=== PATIENT | female | born 1985 | race Caucasian/White ===

== ENCOUNTER 2018-10-07 00:41 | Emergency (ER) | payer MEDICAID ==
[2018-10-07 01:31] LABS: BILIRUBIN,URINE NEGATIVE (NEGATIVE); GLUCOSE, URINE (UA) NEGATIVE (NEGATIVE); KETONES,URINE (UA) NEGATIVE (NEGATIVE); LEUKOCYTE ESTERASE, URINE NEGATIVE (NEGATIVE); NITRITE,URINE NEGATIVE (NEGATIVE); OCCULT BLOOD,URINE NEGATIVE (NEGATIVE); PROTEIN,URINE NEGATIVE (NEGATIVE); UROBILINOGEN,URINE 0.2 (NORMAL) E.U./dL (NORMAL)
--- NOTE | 2018-10-07 01:35 | ED Physician Documentation ---
PD HPI ABD PAIN - Stated complaint Stated Complaint: ABDOMINAL PAIN - Chief complaint Chief Complaint: Abd Pain - History obtained from History obtained from: Patient - History of Present Illness Timing - onset: Today Timing - details: Abrupt onset, Now resolved Pain level max: 2 Pain level now: 0 Quality: Aching Location: Epigastric Improved by: Other (Nothing) Worsened by: Other (Nothing) Associated symptoms: Nausea, Vomiting. No: Hematemesis, Diarrhea, Constipation, Melena, Hematochezia, Chest pain, Dizzy, Near syncope / syncope Similar symptoms before: Has not had sx before Recently seen: Not recently seen - Additional information Additional information: 33-year-old female with history of PTSD here with complaint of epigastric pain after taking 800 mg of ibuprofen at 7 PM and NyQuil at 9 PM to treat her toothache. Patient stated that she had one episode of nausea and vomiting. Patient claims she did not have any food when she took the ibuprofen. Denies any fever, dysuria, constipation or diarrhea.States drinks alcohol sometimes and drinks 2 cups of coffee a day and likes spicy food. Review of Systems Ten Systems: 10 systems reviewed and negative Constitutional: denies: Fever Cardiac: denies: Chest pain / pressure Respiratory: denies: Dyspnea GI: reports: Abdominal Pain, Nausea, Vomiting. denies: Constipation, Diarrhea, Hematemesis, Bloody / black stool : denies: Dysuria Musculoskeletal: denies: Back pain Neurologic: denies: Generalized weakness PD PAST MEDICAL HISTORY - Past Medical History Other Past Medical History: PTSD - Past Surgical History Past Surgical History: No Cardiovascular: Lobectomy - Present Medications Home Medications: Ambulatory Orders Medication Instructions Recorded Confirmed Propranolol [Inderal] 10 mg PO DAILY 07/12/15 07/12/15 cloNIDine [Catapres] 0.1 mg PO DAILY 07/12/15 07/12/15 - Allergies Allergies/Adverse Reactions: Allergies Allergy/AdvReac Type Severity Reaction Status Date / Time No Known Drug Allergies Allergy Verified 10/07/18 00:52 - Social History Does the pt smoke?: Yes Smoking Status: Current every day smoker Does the pt drink ETOH?: Yes ETOH Use: Beer Does the pt have substance abuse?: No Substance Use and Type: Marijuana - Immunizations Immunizations are current?: Yes - POLST Patient has POLST: No PD ED PE NORMAL - Vitals Vital signs reviewed: Yes - General General: Alert and oriented X 3, No acute distress, Well developed/nourished - HEENT HEENT: EOMI, Moist mucous membranes, Pharynx benign - Neck Neck: Supple, no meningeal sign - Cardiac Cardiac: RRR, No murmur - Respiratory Respiratory: No respiratory distress, Clear bilaterally - Abdomen Abdomen: Normal bowel sounds, Soft, Non tender, Non distended, No organomegaly - Back Back: No CVA TTP, No spinal TTP - Derm Derm: Normal color, Warm and dry - Extremities Extremities: No deformity, No edema - Neuro Neuro: Alert and oriented X 3 - Psych Psych: Normal mood, Normal affect Results - Vitals Vitals: Vital Signs - 24 hr 10/07/18 00:50 Temperature 36.8 C Heart Rate 99 Respiratory 17 Rate Blood Pressure 137/72 H O2 Saturation 100 Oxygen O2 Source Room air - Labs Labs: Laboratory Tests 10/07/18 10/07/18 10/07/18 01:15 01:40 01:40 WBC 6.0 RBC 3.21 L Hgb 11.8 L Hct 33.0 L MCV 102.9 H MCH 36.7 H MCHC 35.7 RDW 11.8 L Plt Count 209 MPV 7.3 L Neut # (Auto) 3.8 Lymph # (Auto) 1.6 [place] # (Auto) 0.5 Eos # (Auto) 0.1 Baso # (Auto) 0.1 Absolute Nucleated RBC 0.00 Nucleated RBC % 0.1 Sodium 133 L Potassium 4.0 Chloride 100 L Carbon Dioxide 21 Anion Gap 12.0 BUN < 5 L Creatinine 0.3 L Estimated GFR (MDRD) 255 Glucose 95 Calcium 9.2 Total Bilirubin 0.7 AST 122 H ALT 74 H Alkaline Phosphatase 54 Total Protein 7.4 Albumin 4.1 Globulin 3.3 Albumin/Globulin Ratio 1.2 Lipase 40 Urine Color YELLOW Urine Clarity CLEAR Urine pH 7.0 Ur Specific [place] 1.010 Urine Protein NEGATIVE Urine Glucose (UA) NEGATIVE Urine Ketones NEGATIVE Urine Occult Blood NEGATIVE Urine Nitrite NEGATIVE Urine Bilirubin NEGATIVE Urine Urobilinogen 0.2 (NORMAL) Ur Leukocyte Esterase NEGATIVE Ur Microscopic Review NOT INDICATED Urine Culture Comments NOT INDICATED Urine HCG, Qual NEGATIVE PD MEDICAL DECISION MAKING - ED course Complexity details: reviewed results, re-evaluated patient ( Patient states she is feeling better and denies any epigastric pain. No nausea or vomiting in the ER. patient awake alert and oriented in no acute distress and nontoxic appearing. Inform her of test results. When asked she accepted and said that she drinks 5-6 beers a day. Explained that her LFTs are elevated probably related to the alcohol. Instructed to consider avoiding alcohol and caffeine. If she needs to take NSAIDs she can only take 2 tablets and she has to take it with food. Patient expressed understanding of these. Instructed for her to drink lots of water and eat bland food and take [id number] Prilosec.), considered differential (Side effect of NSAIDs, gastritis, pancreatitis, obstruction), d/w patient Departure - Departure Disposition: Home, Self Care Clinical Impression: Gastritis Qualifiers: Gastritis type: unspecified gastritis Chronicity: acute Gastritis bleeding: without bleeding Qualified Code(s): K29.00 - Acute gastritis without bleeding Condition: Stable Instructions: ED PUD Vs Gastritis Comments: Prior to taking any NSAIDs such as ibuprofen make sure you eat some food. You should only take 2 tablets of the [id number] ibuprofen which is a total of 400 mg And to be taken every 6-8 hours Only when you need it. Avoid spicy, fried foods. Consider to avoid drinking alcohol. Decrease your caffeine intake. Take [id number] Prilosec to decrease acidity in your stomach. Follow-up with your primary doctor in 1 week. If worse return to the emergency room.
[2018-10-07 01:51] LABS: CLARITY,URINE CLEAR (CLEAR); HCG UR QUAL NEGATIVE
[2018-10-07 01:54] LABS: BASOPHILS # (AUTO) 0.1 10^3/uL (0.0-0.1); BASOPHILS % (AUTO) 1.1 %; EOSINOPHILS # (AUTO) 0.1 10^3/uL (0.0-0.7); EOSINOPHILS % (AUTO) 1.4 %; HGB - HEMOGLOBIN 11.8 g/dL (12.0-16.0); LYMPHOCYTES # (AUTO) 1.6 10^3/uL (1.5-3.5); MEAN CORPUSCULAR HEMOGLOBIN 36.7 pg (27.0-31.0); MEAN CORPUSCULAR HGB CONC 35.7 g/dL (32.0-36.0); MEAN CORPUSCULAR VOLUME 102.9 fL (81.0-99.0); MEAN PLATELET VOLUME 7.3 fL (7.9-10.8); MONOCYTES # (AUTO) 0.5 10^3/uL (0.0-1.0); MONOCYTES % (AUTO) 7.9 %; NEUTROPHILS # (AUTO) 3.8 10^3/uL (1.5-6.6); NEUTROPHILS % (AUTO) 62.6 %; PLT - PLATELET COUNT 209 10^3/uL (130-450); RED BLOOD COUNT 3.21 10^6/uL (4.20-5.40); RED CELL DISTRIBUTION WIDTH 11.8 % (12.0-15.0)
[2018-10-07 02:06] LABS: ALBUMIN 4.1 g/dL (3.2-5.5); ALBUMIN/GLOBULIN RATIO 1.2 (1.0-2.2); ALKALINE PHOSPHATASE 54 IU/L (42-121); ALT ALANINE AMINOTRANSFERASE 74 IU/L (10-60); AST ASPARTATE AMINOTRANSFERASE 122 IU/L (10-42); BILIRUBIN,TOTAL 0.7 mg/dL (0.2-1.0); BUN - BLOOD UREA NITROGEN < 5 mg/dL (6-20); CALCIUM 9.2 mg/dL (8.5-10.3); CARBON DIOXIDE - CO2 21 mmol/L (21-32); CHLORIDE 100 mmol/L (101-111); CREATININE 0.3 mg/dL (0.4-1.0); GFR - MDRD 255 (>89); GLUCOSE 95 mg/dL (70-100); LIPASE 40 U/L (22-51); SODIUM 133 mmol/L (135-145); TOTAL PROTEIN 7.4 g/dL (6.7-8.2)
[2018-10-07 03:02] VITALS: BP 121/84
== END 2018-10-07 03:06 | disposition home or self-care (01) ==
LOC: ED 00:41
DX: K29.00 Acute gastritis without bleeding (principal); F17.200 Nicotine dependence, unspecified, uncomplicated
CPT/HCPCS: 36415; 80053; 81001; 81003; 81025; 83690; 85025; 87086; 99283

== ENCOUNTER 2019-02-26 09:15 | Outpatient (CLI) | payer MEDICAID ==
[2019-02-26 18:18] LABS: BASOPHILS % (AUTO) 0.8 %; EOSINOPHILS # (AUTO) 0.1 10^3/uL (0.0-0.7); EOSINOPHILS % (AUTO) 1.8 %; HGB - HEMOGLOBIN 12.1 g/dL (12.0-16.0); LYMPHOCYTES # (AUTO) 1.1 10^3/uL (1.5-3.5); LYMPHOCYTES % (AUTO) 31.5 %; MEAN CORPUSCULAR HEMOGLOBIN 35.4 pg (27.0-31.0); MEAN CORPUSCULAR HGB CONC 34.3 g/dL (32.0-36.0); MEAN CORPUSCULAR VOLUME 103.1 fL (81.0-99.0); MEAN PLATELET VOLUME 7.5 fL (7.9-10.8); MONOCYTES # (AUTO) 0.5 10^3/uL (0.0-1.0); MONOCYTES % (AUTO) 13.8 %; NEUTROPHILS # (AUTO) 1.8 10^3/uL (1.5-6.6); NEUTROPHILS % (AUTO) 52.1 %; PLT - PLATELET COUNT 325 10^3/uL (130-450); RED BLOOD COUNT 3.41 10^6/uL (4.20-5.40); WHITE BLOOD COUNT 3.4 x10^3/uL (4.8-10.8)
[2019-02-26 18:37] LABS: ALBUMIN 4.7 g/dL (3.2-5.5); ALBUMIN/GLOBULIN RATIO 1.7 (1.0-2.2); ALKALINE PHOSPHATASE 38 IU/L (42-121); ALT ALANINE AMINOTRANSFERASE 92 IU/L (10-60); AST ASPARTATE AMINOTRANSFERASE 103 IU/L (10-42); BILIRUBIN,TOTAL 0.7 mg/dL (0.2-1.0); BUN - BLOOD UREA NITROGEN < 5 mg/dL (6-20); CALCIUM 9.5 mg/dL (8.5-10.3); CARBON DIOXIDE - CO2 22 mmol/L (21-32); CHLORIDE 96 mmol/L (101-111); CREATININE 0.3 mg/dL (0.4-1.0); GFR - MDRD 255 (>89); GLUCOSE 90 mg/dL (70-100); SODIUM 129 mmol/L (135-145); TOTAL PROTEIN 7.5 g/dL (6.7-8.2)
== END 2019-02-26 09:16 | disposition home or self-care (01) ==
LOC: LAB.F 09:15
PROVIDERS: ATTEND Registered Nurse
DX: H92.02 Otalgia, left ear (principal); F10.10 Alcohol abuse, uncomplicated; G50.1 Atypical facial pain; K14.6 Glossodynia
CPT/HCPCS: 36415; 80053; 80320; 81599; 85025

== ENCOUNTER 2019-04-27 21:01 | Emergency (ER) | payer MEDICAID ==
[2019-04-27] MEDS ORDERED: HYDROcod/ACETAM 5/325 MG TABLET PO STA (22:15)
[2019-04-27] MEDS ORDERED: CLINDAMYCIN 150 MG CAPSULE PO STA (22:15)
--- NOTE | 2019-04-27 22:25 | ED Physician Documentation ---
PD HPI HEENT - Stated complaint Stated Complaint: TOOTH PX - Chief complaint Chief Complaint: Heent - History obtained from History obtained from: Patient - History of Present Illness Timing - onset: How many days ago (several days) Timing - duration: Days Timing - details: Gradual onset Pain level max: 8 Pain level now: 8 Location: Tooth (L upper and lower molars) Improves: Nothing Worsens: Swalllowing, Temperatures Associated symptoms: No: Fever, Congestion, Rhinorrhea, Trismus, Unable to swallow, Swollen nodes, Facial swelling, Headache, Cough Similar symptoms before: Other (Has had problems with this tooth in the past) Review of Systems Constitutional: denies: Fever, Chills : denies: Now EGA Skin: denies: Rash Musculoskeletal: denies: Neck pain, Back pain Neurologic: denies: Headache PD PAST MEDICAL HISTORY - Past Medical History Past Medical History: No Cardiovascular: None Respiratory: None Neuro: None Endocrine/Autoimmune: None GI: None 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 : None HEENT: None Psych: Anxiety, Post traumatic stress disorder Musculoskeletal: None Derm: Other - Past Surgical History Past Surgical History: No Cardiovascular: Lobectomy - Present Medications Home Medications: Ambulatory Orders Medication Instructions Recorded Confirmed Propranolol [Inderal] 10 mg PO DAILY 07/12/15 07/12/15 cloNIDine [Catapres] 0.1 mg PO DAILY 07/12/15 07/12/15 Clindamycin HCl [Clindamycin 300MG 300 mg PO Q6H #40 capsule 04/27/19 CAP] Hydrocodone/Acetaminophen 1 - 2 each PO Q6H PRN #10 tablet 04/27/19 [Hydrocodon-Acetaminophen 5-325] - Allergies Allergies/Adverse Reactions: Allergies Allergy/AdvReac Type Severity Reaction Status Date / Time sumatriptan [From Imitrex] Allergy Severe Respiratory Verified 04/27/19 21:05 Penicillins AdvReac Mild Unknown Verified 04/27/19 21:04 - Social History Does the pt smoke?: No Smoking Status: Former smoker Does the pt drink ETOH?: Yes Does the pt have substance abuse?: No - Immunizations Immunizations are current?: Yes - POLST Patient has POLST: No PD ED PE NORMAL - Vitals Vital signs reviewed: Yes - General General: Alert and oriented X 3, No acute distress - HEENT HEENT: Moist mucous membranes, Other (Dental caries on the left upper molar. No drainable abscess.) - Neck Neck: Supple, no meningeal sign - Cardiac Cardiac: RRR - Derm Derm: Warm and dry - Neuro Neuro: Alert and oriented X 3 Results - Vitals Vitals: Oxygen O2 Source Room air PD MEDICAL DECISION MAKING - ED course Complexity details: considered differential, d/w patient ED course: 33-year-old female with dental caries. Will place on antibiotics for home as we ll as pain medication. We will follow-up with her dentist for further care. Patient counseled regarding signs and symptoms for which I believe and urgent re-evaluation would be necessary. Patient with good understanding of and agreement to plan and is comfortable going home at this time This document was made in part using voice recognition software. While efforts are made to proofread this document, sound alike and grammatical errors may occur. Departure - Departure Disposition: 01 Home, Self Care Clinical Impression: Dental caries Condition: Good Instructions: ED Tooth Pain Follow-Up: your,doctor within 1 week [Other] Prescriptions: Clindamycin HCl [Clindamycin 300MG CAP] 300 mg PO Q6H #40 capsule Hydrocodone/Acetaminophen [Hydrocodon-Acetaminophen 5-325] 1 - 2 each PO Q6H PRN #10 tablet PRN Reason: pain Comments: Return if you worsen. Follow-up with your doctor for further care. You should follow-up with the dentist to have your dental work done. Do not drink alcohol or drive while on narcotic pain medicine. Note that many narcotic pain relievers also contain tylenol/acetaminophen. Please ensure that your total dose of acetaminophen from all sources does not exceed 3 grams (3000mg) per day. You may constipated on this medication, take a stool softener such as "Colace" twice a day while you are on it. Also recommend a [id number] laxative such as senna or MiraLAX any day that you do not have a bowel movement. If you received narcotic pain medication in the emergency department, do not drive or operate machinery for the next 24 hours. Discharge Date/Time: 04/27/19 22:39
[2019-04-27 22:39] VITALS: BP 139/93
== END 2019-04-27 22:39 | disposition home or self-care (01) ==
LOC: ED 21:01
DX: K02.9 Dental caries, unspecified (principal); Z88.0 Allergy status to penicillin; Z87.891 Personal history of nicotine dependence
CPT/HCPCS: 99283; A9270

== ENCOUNTER 2019-08-22 08:02 | Emergency (ER) | payer MEDICAID ==
[2019-08-22 08:10] VITALS: BP 144/91
--- NOTE | 2019-08-22 08:39 | ED Physician Documentation ---
PD HPI HEENT - Stated complaint Stated Complaint: SWOLLEN THROAT - Chief complaint Chief Complaint: Heent - History obtained from History obtained from: Patient - History of Present Illness Timing - onset: How many days ago (several days of left anterior tender adenopathy. ALso left sided headache. Has had this recurrently and responded best to Clinda and steroids in the past. Has left periorbital headache as well, with history of migraines. No focal deficits. No fevers. No visual changes.) Timing - duration: Days (few) Timing - details: Gradual onset, Still present Location: Sinuses (left periorbital), Other (left anterior neck). No: Tooth Associated symptoms: Swollen nodes, Headache. No: Fever, Facial swelling, Cough Similar symptoms before: No diagnosis (has seen ENT before withotu dx. Has had the adenopathy respond to Clinda, not to Keflex, in the past. Has seen dentist and not a dental infection. Has had this recurrently several times in the past year. Has appt with ENT in next couple weeks. Has had facial twitching as well and headache, and has appt with Neuro in couple weeks as well.) Review of Systems Constitutional: reports: Myalgias. denies: Fever, Chills Eyes: denies: Loss of vision, Decreased vision Nose: reports: Sinus pressure / pain. denies: Rhinorrhea / runny nose, Congestion Throat: denies: Dental pain / toothache, Sore throat Respiratory: denies: Cough Skin: denies: Rash, Lesions Neurologic: reports: Headache. 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 : None HEENT: None Psych: Anxiety, Post traumatic stress disorder Musculoskeletal: None Derm: Other - Past Surgical History Past Surgical History: No Cardiovascular: Lobectomy - Present Medications Home Medications: Ambulatory Orders Medication Instructions Recorded Confirmed Propranolol [Inderal] 10 mg PO DAILY 07/12/15 07/12/15 cloNIDine [Catapres] 0.1 mg PO DAILY 07/12/15 07/12/15 Clindamycin HCl [Clindamycin 300MG 300 mg PO Q6H #40 capsule 04/27/19 CAP] Hydrocodone/Acetaminophen 1 - 2 each PO Q6H PRN #10 tablet 04/27/19 [Hydrocodon-Acetaminophen 5-325] Butalb/Acetaminophen/Caffeine 1 each PO TID PRN #12 capsule 08/22/19 [Fioricet 50-300-40 mg Capsule] Clindamycin HCl [Clindamycin 300MG 300 mg PO TID #21 capsule 08/22/19 CAP] Hydrocodone/Acetaminophen [[place] 1 each PO Q6H PRN #12 tablet 08/22/19 5-325 Tablet] dexAMETHasone [Decadron] 4 mg PO DAILY #7 tablet 08/22/19 - Allergies Allergies/Adverse Reactions: Allergies Allergy/AdvReac Type Severity Reaction Status Date / Time sumatriptan [From Imitrex] Allergy Severe Respiratory Verified 04/27/19 21:05 naltrexone Allergy Unknown Verified 08/22/19 08:10 - Social History Does the pt smoke?: No Smoking Status: Former smoker Does the pt drink ETOH?: Yes Does the pt have substance abuse?: No - Immunizations Immunizations are current?: Yes - POLST Patient has POLST: No PD ED PE NORMAL - Vitals Vital signs reviewed: Yes - General General: Alert and oriented X 3, No acute distress, Well developed/nourished - HEENT HEENT: Ears normal, Moist mucous membranes, Pharynx benign, Dentition benign - Neck Neck: Supple, no meningeal sign, Other (left anterior adenopathy which is moderately tender. No redness. No fluctuance. 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 Seems more likely sinus. Consider migraine as she has had those previously. Also with recurrent left anterior adenopathy. Has appt with ENT re adenopathy and Neuro re headaches in next couple of weeks. ), d/w patient Departure - Departure Disposition: 01 Home, Self Care Clinical Impression: Left-sided headache, Anterior cervical adenopathy Condition: Stable Record reviewed to determine appropriate education?: Yes Instructions: ED Cervical Adenitis Abx Tx Prescriptions: Butalb/Acetaminophen/Caffeine [Fioricet 50-300-40 mg Capsule] 1 each PO TID PRN #12 capsule PRN Reason: Migraine Clindamycin HCl [Clindamycin 300MG CAP] 300 mg PO TID #21 capsule dexAMETHasone [Decadron] 4 mg PO DAILY #7 tablet Hydrocodone/Acetaminophen [[place] 5-325 Tablet] 1 each PO Q6H PRN #12 tablet PRN Reason: Pain Comments: The headache may be sinus related or could be migraine. You can try the Fioricet periodically if needed for migraine type headache. Otherwise Tylenol or ibuprofen for the pain and add hydrocodone if needed. The Decadron steroid will help with migraine and sinus type headache as well as the swelling of the lymph node. Clindamycin antibiotic for the swelling of the lymph node. Follow-up with neurology and ENT as scheduled in the next couple of weeks. Recheck if worsening. Discharge Date/Time: 08/22/19 09:41
[2019-08-22] MEDS ORDERED: DEXAMETHASONE 10 MG/ML VIAL PO STA (09:01)
[2019-08-22] MEDS ORDERED: BUTALB/ACETAM/CAFF 50/325/40MG TABLET PO STA (09:01)
[2019-08-22] MEDS ORDERED: CLINDAMYCIN 150 MG CAPSULE PO STA (09:01)
[2019-08-22] MEDS ORDERED: CHERRY SYRUP 10 ML UDC PO ONE (09:01)
== END 2019-08-22 09:41 | disposition home or self-care (01) ==
LOC: ED 08:02
DX: R51 Headache (principal); R59.0 Localized enlarged lymph nodes; Z87.891 Personal history of nicotine dependence
CPT/HCPCS: 99283; 99284; A9270

== ENCOUNTER 2020-01-14 18:15 | Emergency (ER) | payer MEDICAID ==
[2020-01-14] MEDS ORDERED: SODIUM CHLORIDE 0.9% 1,000 ML IV ONE (18:26)
[2020-01-14 18:53] LABS: MUDS CUTOFF CONCENTRATIONS CUTOFF CONC BELOW:
[2020-01-14 18:54] LABS: BASOPHILS # (AUTO) 0.1 10^3/uL (0.0-0.1); BASOPHILS % (AUTO) 1.5 %; EOSINOPHILS # (AUTO) 0.1 10^3/uL (0.0-0.7); HGB - HEMOGLOBIN 11.8 g/dL (12.0-16.0); LYMPHOCYTES # (AUTO) 1.7 10^3/uL (1.5-3.5); LYMPHOCYTES % (AUTO) 43.9 %; MEAN CORPUSCULAR HEMOGLOBIN 35.1 pg (27.0-31.0); MEAN CORPUSCULAR HGB CONC 34.8 g/dL (32.0-36.0); MEAN CORPUSCULAR VOLUME 100.9 fL (81.0-99.0); MEAN PLATELET VOLUME 8.7 fL (7.9-10.8); MONOCYTES # (AUTO) 0.3 10^3/uL (0.0-1.0); MONOCYTES % (AUTO) 8.4 %; NEUTROPHILS # (AUTO) 1.7 10^3/uL (1.5-6.6); NEUTROPHILS % (AUTO) 43.9 %; PLT - PLATELET COUNT 224 10^3/uL (130-450); RED BLOOD COUNT 3.36 10^6/uL (4.20-5.40); RED CELL DISTRIBUTION WIDTH 11.3 % (12.0-15.0); WHITE BLOOD COUNT 3.9 x10^3/uL (4.8-10.8)
[2020-01-14 18:56] LABS: BILIRUBIN,URINE NEGATIVE (NEGATIVE); GLUCOSE, URINE (UA) NEGATIVE (NEGATIVE); KETONES,URINE (UA) NEGATIVE (NEGATIVE); LEUKOCYTE ESTERASE, URINE NEGATIVE (NEGATIVE); NITRITE,URINE POSITIVE (NEGATIVE); OCCULT BLOOD,URINE NEGATIVE (NEGATIVE); PROTEIN,URINE NEGATIVE (NEGATIVE); UROBILINOGEN,URINE 0.2 (NORMAL) E.U./dL (NORMAL)
[2020-01-14 18:59] LABS: CLARITY,URINE HAZY (CLEAR); HCG UR QUAL NEGATIVE
[2020-01-14 19:08] LABS: AMPHETAMINE SCREEN,URINE NEGATIVE (NEGATIVE); BENZODIAZEPINES SCREEN, URINE NEGATIVE (NEGATIVE); COCAINE SCREEN URINE NEGATIVE (NEGATIVE); METHADONE SCREEN, URINE NEGATIVE (NEGATIVE); METHAMPHETAMINES SCREEN, URINE NEGATIVE (NEGATIVE); OPIATE SCREEN, URINE NEGATIVE (NEGATIVE); OXYCODONE SCREEN, URINE NEGATIVE (NEGATIVE); PROPOXYPHENE SCREEN, URINE NEGATIVE (NEGATIVE); TRICYCLIC ANTIDEPRESSANT,URINE POSITIVE (NEGATIVE)
[2020-01-14 19:12] LABS: ALBUMIN 4.5 g/dL (3.2-5.5); ALBUMIN/GLOBULIN RATIO 1.5 (1.0-2.2); ALKALINE PHOSPHATASE 61 IU/L (42-121); ALT ALANINE AMINOTRANSFERASE 73 IU/L (10-60); AST ASPARTATE AMINOTRANSFERASE 140 IU/L (10-42); BILIRUBIN,TOTAL 0.7 mg/dL (0.2-1.0); BUN - BLOOD UREA NITROGEN < 5 mg/dL (6-20); CALCIUM 8.7 mg/dL (8.5-10.3); CARBON DIOXIDE - CO2 23 mmol/L (21-32); CHLORIDE 97 mmol/L (101-111); CREATININE 0.3 mg/dL (0.4-1.0); GFR - MDRD 253 (>89); GLUCOSE 95 mg/dL (70-100); LIPASE 42 U/L (22-51); MAGNESIUM 2.3 mg/dL (1.7-2.8); PHOSPHORUS 4.1 mg/dL (2.5-4.6); SODIUM 134 mmol/L (135-145); TOTAL PROTEIN 7.5 g/dL (6.7-8.2)
[2020-01-14 19:13] LABS: BACTERIA,URINE Few /HPF (None Seen); RBC,URINE 0-5 /HPF (0-5); SQUAMOUS EPITHELIAL CELL,UR FEW Squamous (<= Few)
--- NOTE | 2020-01-14 19:22 | ED Physician Documentation ---
History of Present Illness - Stated complaint Stated Complaint: DIZZY, FATIGUE - Chief complaint Chief Complaint: Neuro - History obtained from History obtained from: Patient - History of Present Illness Timing: Today Pain level max: 0 Pain level now: 0 - Additonal information Additional information: 34-year-old female states that she has been Not been feeling well for the past few days. She states she intermittently feels lightheaded and dizzy. Sometimes has a rash over her arms, chest and legs. She states she drinks alcohol, but only had "one beer today". Some nausea but no vomiting. Worse with standing, better with lying down. No fevers. No cough. No recent travel. No changes in her medications. 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 : None HEENT: None Psych: Anxiety, Post traumatic stress disorder Musculoskeletal: None Derm: Other - Past Surgical History Past Surgical History: No Cardiovascular: Lobectomy - Present Medications Home Medications: Ambulatory Orders Medication Instructions Recorded Confirmed Propranolol [Inderal] 10 mg PO DAILY 07/12/15 07/12/15 cloNIDine [Catapres] 0.1 mg PO DAILY 07/12/15 07/12/15 Clindamycin HCl [Clindamycin 300MG 300 mg PO Q6H #40 capsule 04/27/19 CAP] Hydrocodone/Acetaminophen 1 - 2 each PO Q6H PRN #10 tablet 04/27/19 [Hydrocodon-Acetaminophen 5-325] Butalb/Acetaminophen/Caffeine 1 each PO TID PRN #12 capsule 08/22/19 [Fioricet 50-300-40 mg Capsule] Clindamycin HCl [Clindamycin 300MG 300 mg PO TID #21 capsule 08/22/19 CAP] Hydrocodone/Acetaminophen [[place] 1 each PO Q6H PRN #12 tablet 08/22/19 5-325 Tablet] dexAMETHasone [Decadron] 4 mg PO DAILY #7 tablet 08/22/19 - Allergies Allergies/Adverse Reactions: Allergies Allergy/AdvReac Type Severity Reaction Status Date / Time sumatriptan [From Imitrex] Allergy Severe Respiratory Verified 04/27/19 21:05 naltrexone Allergy Unknown Verified 08/22/19 08:10 - Social History Does the pt smoke?: No Smoking Status: Former smoker Does the pt drink ETOH?: Yes Does the pt have substance abuse?: No - Immunizations Immunizations are current?: Yes - POLST Patient has POLST: No PD ED PE NORMAL - Vitals Vital signs reviewed: Yes - General General: Alert and oriented X 3, No acute distress, Well developed/nourished, Other (Intoxicated) - HEENT HEENT: PERRL, Moist mucous membranes, Pharynx benign - Neck Neck: Supple, no meningeal sign - Cardiac Cardiac: RRR, Strong equal pulses - Respiratory Respiratory: No respiratory distress, Clear bilaterally - Abdomen Abdomen: Soft, Non tender, Non distended - Derm Derm: Warm and dry, Other (Mild maculopapular exanthem. This is body wide. Blanches easily) - Extremities Extremities: No edema, No calf tenderness / cord - Neuro Neuro: Alert and oriented X 3 - Psych Psych: Normal mood, Normal affect Results - Vitals Vitals: Vital Signs - 24 hr 01/14/20 01/14/20 01/14/20 18:19 18:47 19:39 Temperature 36.7 C Heart Rate 128 H 108 H 117 H Respiratory 16 17 17 Rate Blood Pressure 120/91 H 133/96 H 120/95 H O2 Saturation 95 96 99 01/14/20 20:22 Temperature 37.1 C Heart Rate 107 H Respiratory 16 Rate Blood Pressure 127/65 O2 Saturation 99 Oxygen O2 Source Room air - Labs Labs: Laboratory Tests 01/14/20 01/14/20 01/14/20 17:35 18:44 18:44 WBC 3.9 L RBC 3.36 L Hgb 11.8 L Hct 33.9 L MCV 100.9 H MCH 35.1 H MCHC 34.8 RDW 11.3 L Plt Count 224 MPV 8.7 Neut # (Auto) 1.7 Lymph # (Auto) 1.7 [place] # (Auto) 0.3 Eos # (Auto) 0.1 Baso # (Auto) 0.1 Absolute Nucleated RBC 0.00 Nucleated RBC % 0.0 PT INR APTT Sodium 134 L Potassium 3.6 Chloride 97 L Carbon Dioxide 23 Anion Gap 14.0 H BUN < 5 L Creatinine 0.3 L Estimated GFR (MDRD) 253 Glucose 95 Calcium 8.7 Phosphorus 4.1 Magnesium 2.3 Total Bilirubin 0.7 AST 140 H ALT 73 H Alkaline Phosphatase 61 Total Protein 7.5 Albumin 4.5 Globulin 3.0 Albumin/Globulin Ratio 1.5 Lipase 42 Urine Color YELLOW Urine Clarity HAZY Urine pH 6.0 Ur Specific [place] <=1.005 Urine Protein NEGATIVE Urine Glucose (UA) NEGATIVE Urine Ketones NEGATIVE Urine Occult Blood NEGATIVE Urine Nitrite POSITIVE H Urine Bilirubin NEGATIVE Urine Urobilinogen 0.2 (NORMAL) Ur Leukocyte Esterase NEGATIVE Urine RBC 0-5 Urine WBC 0-3 Ur Squamous Epith Cells FEW Squamous Urine Bacteria Few Ur Microscopic Review INDICATED Urine Culture Comments INDICATED Urine HCG, Qual NEGATIVE Urine Opiates Screen NEGATIVE Ur Oxycodone Screen NEGATIVE Urine Methadone Screen NEGATIVE Ur Propoxyphene Screen NEGATIVE Ur Barbiturates Screen POSITIVE H Ur Tricyclics Screen POSITIVE H Ur Phencyclidine Scrn NEGATIVE Ur Amphetamine Screen NEGATIVE U Methamphetamines Scrn NEGATIVE U Benzodiazepines Scrn NEGATIVE Urine Cocaine Screen NEGATIVE U Cannabinoids Screen NEGATIVE Ethyl Alcohol 371.2 01/14/20 18:44 WBC RBC Hgb Hct MCV MCH MCHC RDW Plt Count MPV Neut # (Auto) Lymph # (Auto) [place] # (Auto) Eos # (Auto) Baso # (Auto) Absolute Nucleated RBC Nucleated RBC % PT 11.2 INR 1.0 APTT 30.2 Sodium Potassium Chloride Carbon Dioxide Anion Gap BUN Creatinine Estimated GFR (MDRD) Glucose Calcium Phosphorus Magnesium Total Bilirubin AST ALT Alkaline Phosphatase Total Protein Albumin Globulin Albumin/Globulin Ratio Lipase Urine Color Urine Clarity Urine pH Ur Specific [place] Urine Protein Urine Glucose (UA) Urine Ketones Urine Occult Blood Urine Nitrite Urine Bilirubin Urine Urobilinogen Ur Leukocyte Esterase Urine RBC Urine WBC Ur Squamous Epith Cells Urine Bacteria Ur Microscopic Review Urine Culture Comments Urine HCG, Qual Urine Opiates Screen Ur Oxycodone Screen Urine Methadone Screen Ur Propoxyphene Screen Ur Barbiturates Screen Ur Tricyclics Screen Ur Phencyclidine Scrn Ur Amphetamine Screen U Methamphetamines Scrn U Benzodiazepines Scrn Urine Cocaine Screen U Cannabinoids Screen Ethyl Alcohol PD MEDICAL DECISION MAKING - ED course Complexity details: reviewed results, re-evaluated patient, considered differential, d/w patient ED course: Patient feels better after IV fluids. She does have significant alcohol intoxic ation. We discussed treatment at length, offered inpatient rehab, offered resources. She states she does not need resources for alcoholism. Recommend that she follow-up closely with her counselor and a psychiatrist for her PTSD and anxiety. Also counseled regarding the liver damage that is occurring from her heavy alcohol use. Recommend that she follow-up closely with her doctor. She is ambulating with a steady gait and has clear speech. Patient counseled regarding signs and symptoms for which I believe and urgent re-evaluation would be necessary. Patient with good understanding of and agreement to plan and is comfortable going home at this time This document was made in part using voice recognition software. While efforts are made to proofread this document, sound alike and grammatical errors may occur. Departure - Departure Disposition: 01 Home, Self Care Clinical Impression: Dehydration, Anxiety Alcohol intoxication Qualifiers: Complication of substance-induced condition: with unspecified complication Qualified Code(s): F10.929 - Alcohol use, unspecified with intoxication, unspecified Condition: Good Instructions: ED Dehydration, ED Alcohol Intoxication Follow-Up: Álvaro Naqvi MD [Primary Care Provider] - Within 1 week Comments: You need to stop drinking. You need to see a psychiatrist to help with your anxiety and PTSD. Return if you worsen. You may benefit from cognitive behavioral therapy.
[2020-01-14 19:30] LABS: PT - PROTHROMBIN TIME 11.2 secs (9.9-12.6)
[2020-01-14 19:37] LABS: PARTIAL THROMBOPLASTIN TIME 30.2 secs (24.9-33.3)
[2020-01-14 20:23] VITALS: BP 127/65
== END 2020-01-14 20:39 | disposition home or self-care (01) ==
LOC: ED 18:15
DX: E86.0 Dehydration (principal); F41.9 Anxiety disorder, unspecified; F10.129 Alcohol abuse with intoxication, unspecified
CPT/HCPCS: 36415; 80053; 80306; 80320; 81001; 81003; 81025; 83690; 83735; 84100; 85025; 85610; 85730; 87086; 87181; 96360; 99284

== ENCOUNTER 2020-02-01 14:09 | Emergency (ER) | payer MEDICAID ==
[2020-02-01] MEDS ORDERED: PANTOPRAZOLE 40 MG TABLET PO STA (14:37)
[2020-02-01] MEDS ORDERED: KETOROLAC 60 MG/2 ML VIAL IM STA (14:37)
--- NOTE | 2020-02-01 14:40 | ED Physician Documentation ---
PD HPI HEADACHE - Stated complaint Stated Complaint: ROME - Chief complaint Chief Complaint: Neuro - History obtained from History obtained from: Patient - History of Present Illness Timing - onset: Other (34-year-old woman presents for headache that is been going on for 2 years. Usually on the left side of her head. Comes and goes. Was treated in the past as a migraine but without any success. She has been on Imitrex in the past which gave her a bad reaction. She is also been on gabapentin, ibuprofen, terazosin, nortriptyline. She did not really find any of these helpful. Recently had an MRI at another facility which she said showed evidence of multiple sclerosis and will be following up with a neurologist but needs some pain relief in the interim. There is no acute complaints. The hemahin dache is not new. 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 : None HEENT: None Psych: Anxiety, Post traumatic stress disorder Musculoskeletal: None Derm: Other - Past Surgical History Past Surgical History: No Cardiovascular: Lobectomy - Present Medications Home Medications: Ambulatory Orders Medication Instructions Recorded Confirmed Propranolol [Inderal] 10 mg PO DAILY 07/12/15 07/12/15 cloNIDine [Catapres] 0.1 mg PO DAILY 07/12/15 07/12/15 Clindamycin HCl [Clindamycin 300MG 300 mg PO Q6H #40 capsule 04/27/19 CAP] Hydrocodone/Acetaminophen 1 - 2 each PO Q6H PRN #10 tablet 04/27/19 [Hydrocodon-Acetaminophen 5-325] Butalb/Acetaminophen/Caffeine 1 each PO TID PRN #12 capsule 08/22/19 [Fioricet 50-300-40 mg Capsule] Clindamycin HCl [Clindamycin 300MG 300 mg PO TID #21 capsule 08/22/19 CAP] Hydrocodone/Acetaminophen [[place] 1 each PO Q6H PRN #12 tablet 08/22/19 5-325 Tablet] dexAMETHasone [Decadron] 4 mg PO DAILY #7 tablet 08/22/19 Meloxicam [Mobic] 7.5 mg PO BID PRN #10 tablet 02/01/20 Omeprazole 20 mg PO DAILY #14 capsule. 02/01/20 - Allergies Allergies/Adverse Reactions: Allergies Allergy/AdvReac Type Severity Reaction Status Date / Time sumatriptan [From Imitrex] Allergy Severe Respiratory Verified 04/27/19 21:05 naltrexone Allergy Unknown Verified 08/22/19 08:10 - Social History Does the pt smoke?: No Smoking Status: Never smoker Does the pt drink ETOH?: Yes Does the pt have substance abuse?: No - Immunizations Immunizations are current?: Yes - POLST Patient has POLST: No PD ED PE NORMAL - Vitals Vital signs reviewed: Yes - General General: Alert and oriented X 3, No acute distress - HEENT HEENT: PERRL, EOMI, Other (Mildly bloodshot conjunctiva, no icterus, Significant horizontal nystagmus) - Neck Neck: Supple, no meningeal sign, No bony TTP - Back Back: No CVA TTP, No spinal TTP - Derm Derm: Normal color, Warm and dry - Extremities Extremities: No edema, No calf tenderness / cord - Neuro Neuro: Alert and oriented X 3, machine ceramic coater 2-12 intact, No motor deficit, No sensory deficit, Normal speech Eye Opening: Spontaneous Motor: Obeys Commands Verbal: Oriented GCS Score: 15 - Psych Psych: Normal mood, Normal affect Results - Vitals Vitals: Vital Signs - 24 hr 02/01/20 02/01/20 14:12 14:26 Temperature 37.2 C Heart Rate 116 H 120 H Respiratory 16 16 Rate Blood Pressure 139/90 H 132/74 H O2 Saturation 95 96 Oxygen O2 Source Room air PD MEDICAL DECISION MAKING - ED course ED course: This is a 34-year-old woman who presents by taxi for a chronic headache without change. No clinical evidence of emergency medical condition. Unfortunately her treatments are severely limited by ongoing severe alcohol abuse and intoxication. She declined to talk to the adoption social worker about detox options. Departure - Departure Disposition: 01 Home, Self Care Clinical Impression: Alcohol intoxication Qualifiers: Complication of substance-induced condition: uncomplicated Qualified Code(s): F10.920 - Alcohol use, unspecified with intoxication, uncomplicated Chronic headache Qualifiers: Headache type: unspecified Intractability: not intractable Qualified Code(s): R51 - Headache Condition: Good Record reviewed to determine appropriate education?: Yes Instructions: ED Cephalgia Unspecified, ED Alcohol Intoxication Prescriptions: Meloxicam [Mobic] 7.5 mg PO BID PRN #10 tablet PRN Reason: Pain Omeprazole 20 mg PO DAILY #14 capsule. Comments: As discussed, the options for treatment for your headache is significantly limited by ongoing and severe alcohol abuse. I offered to have you talk to the adoption social worker today which she declined. Return for new or worsening symptoms and follow-up with your primary care physician on Tuesday.
[2020-02-01 14:49] VITALS: BP 108/84
== END 2020-02-01 14:54 | disposition home or self-care (01) ==
LOC: ED 14:09
DX: R51 Headache (principal); F10.129 Alcohol abuse with intoxication, unspecified
CPT/HCPCS: 96372; 99283; 99284; A9270

== ENCOUNTER 2020-02-15 20:55 | Emergency (ER) | payer MEDICAID ==
--- NOTE | 2020-02-15 21:15 | ED Physician Documentation ---
History of Present Illness - Stated complaint Stated Complaint: HEAD/BODY PX - Chief complaint Chief Complaint: General - History obtained from History obtained from: Patient - History of Present Illness Pain level now: 4 Improved by: nothing Worsened by: no exacerbating factors - Additonal information Additional information: patient says she has been having diffuse, unexplained bruises x several days. She says she called a nurse advice hotline [facility] and they advised that she go to the emergency department "to make sure I don't have internal bleeding" (per patient). She denies vomiting, hematemesis, hematochezia, dark black/tarry stool. She admits to heavy, regular drinking which she says is "the only thing that helps" her chronic pain. 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 : None HEENT: None Psych: Anxiety, Post traumatic stress disorder Musculoskeletal: None Derm: Other - Past Surgical History Past Surgical History: No Cardiovascular: Lobectomy - Present Medications Home Medications: Ambulatory Orders Medication Instructions Recorded Confirmed Propranolol [Inderal] 10 mg PO DAILY 07/12/15 07/12/15 cloNIDine [Catapres] 0.1 mg PO DAILY 07/12/15 07/12/15 Clindamycin HCl [Clindamycin 300MG 300 mg PO Q6H #40 capsule 04/27/19 CAP] Hydrocodone/Acetaminophen 1 - 2 each PO Q6H PRN #10 tablet 04/27/19 [Hydrocodon-Acetaminophen 5-325] Butalb/Acetaminophen/Caffeine 1 each PO TID PRN #12 capsule 08/22/19 [Fioricet 50-300-40 mg Capsule] Clindamycin HCl [Clindamycin 300MG 300 mg PO TID #21 capsule 08/22/19 CAP] Hydrocodone/Acetaminophen [[place] 1 each PO Q6H PRN #12 tablet 08/22/19 5-325 Tablet] dexAMETHasone [Decadron] 4 mg PO DAILY #7 tablet 08/22/19 Meloxicam [Mobic] 7.5 mg PO BID PRN #10 tablet 02/01/20 Omeprazole 20 mg PO DAILY #14 capsule. 02/01/20 traMADol [Ultram] 50 mg PO Q6H PRN #14 tablet 02/15/20 - Allergies Allergies/Adverse Reactions: Allergies Allergy/AdvReac Type Severity Reaction Status Date / Time sumatriptan [From Imitrex] Allergy Severe Respiratory Verified 02/15/20 21:07 naltrexone Allergy Unknown Verified 02/15/20 21:07 - Social History Does the pt smoke?: No Smoking Status: Never smoker Does the pt drink ETOH?: Yes Does the pt have substance abuse?: No - Immunizations Immunizations are current?: Yes - POLST Patient has POLST: No PD ED PE NORMAL - Vitals Vital signs reviewed: Yes - General General: Alert and oriented X 3, No acute distress, Well developed/nourished - HEENT HEENT: Moist mucous membranes - Neck Neck: Supple, no meningeal sign - Cardiac Cardiac: No murmur - Respiratory Respiratory: No respiratory distress, Clear bilaterally - Abdomen Abdomen: Soft, Non tender - Derm Derm: Normal color, Warm and dry, No rash, Other (few, faint, small bruises on BLE ) - Extremities Extremities: No edema PD ED PE EXPANDED - Cardiac Cardiac: Tachy, Regular Rhythm Results - Vitals Vitals: Vital Signs - 24 hr 02/15/20 02/15/20 20:58 22:59 Temperature 36.8 C 37 C Heart Rate 112 H 95 Respiratory 17 18 Rate Blood Pressure 127/77 128/93 H O2 Saturation 95 99 Oxygen O2 Source Room air - Labs Labs: Laboratory Tests 02/15/20 02/15/20 02/15/20 21:57 21:57 21:57 WBC 4.0 L RBC 3.68 L Hgb 13.2 Hct 37.2 MCV 101.1 H MCH 35.9 H MCHC 35.5 RDW 11.7 L Plt Count 223 MPV 8.5 Neut # (Auto) 1.5 Lymph # (Auto) 2.1 [place] # (Auto) 0.3 Eos # (Auto) 0.0 Baso # (Auto) 0.1 Absolute Nucleated RBC 0.00 Nucleated RBC % 0.0 PT 11.3 INR 1.0 Sodium 131 L Potassium 3.8 Chloride 93 L Carbon Dioxide 22 Anion Gap 16.0 H BUN 5 L Creatinine 0.3 L Estimated GFR (MDRD) 253 Glucose 96 Calcium 8.7 Total Bilirubin 0.9 AST 182 H ALT 77 H Alkaline Phosphatase 58 Total Protein 8.1 Albumin 5.0 Globulin 3.1 Albumin/Globulin Ratio 1.6 Lipase 37 PD MEDICAL DECISION MAKING - ED course Complexity details: reviewed old records, reviewed results, re-evaluated patient, considered differential, d/w patient ED course: I only see few, small bruises on BLE, appear different stages (some are blue, others brown/green/yellow older bruises). There are no bruises on her back and no notable bruising on BUE. She was given tramadol for her chronic pain, which I explained was for short- term use only. I explained to her that she needs to quit drinking and should not drink any alcohol if she takes the prescribed tramadol. Departure - Departure Disposition: 01 Home, Self Care Clinical Impression: Bruising Chronic pain Qualifiers: Chronic pain type: other chronic pain Qualified Code(s): G89.29 - Other chronic pain Condition: Good Instructions: ED Symptoms No Dx Follow-Up: Álvaro Navqi MD [Primary Care Provider] - Prescriptions: traMADol [Ultram] 50 mg PO Q6H PRN #14 tablet PRN Reason: Pain Discharge Date/Time: 02/15/20 23:13
[2020-02-15] MEDS ORDERED: traMADol 50 MG TABLET PO STA (21:50)
[2020-02-15 22:05] LABS: BASOPHILS # (AUTO) 0.1 10^3/uL (0.0-0.1); BASOPHILS % (AUTO) 1.8 %; EOSINOPHILS % (AUTO) 0.3 %; HGB - HEMOGLOBIN 13.2 g/dL (12.0-16.0); LYMPHOCYTES # (AUTO) 2.1 10^3/uL (1.5-3.5); LYMPHOCYTES % (AUTO) 53.5 %; MEAN CORPUSCULAR HEMOGLOBIN 35.9 pg (27.0-31.0); MEAN CORPUSCULAR HGB CONC 35.5 g/dL (32.0-36.0); MEAN CORPUSCULAR VOLUME 101.1 fL (81.0-99.0); MEAN PLATELET VOLUME 8.5 fL (7.9-10.8); MONOCYTES # (AUTO) 0.3 10^3/uL (0.0-1.0); MONOCYTES % (AUTO) 7.3 %; NEUTROPHILS # (AUTO) 1.5 10^3/uL (1.5-6.6); NEUTROPHILS % (AUTO) 36.8 %; PLT - PLATELET COUNT 223 10^3/uL (130-450); RED BLOOD COUNT 3.68 10^6/uL (4.20-5.40); RED CELL DISTRIBUTION WIDTH 11.7 % (12.0-15.0)
[2020-02-15 22:09] LABS: PT - PROTHROMBIN TIME 11.3 secs (9.9-12.6)
[2020-02-15 22:16] LABS: ALBUMIN/GLOBULIN RATIO 1.6 (1.0-2.2); BILIRUBIN,TOTAL 0.9 mg/dL (0.2-1.0); CALCIUM 8.7 mg/dL (8.5-10.3); CREATININE 0.3 mg/dL (0.4-1.0); TOTAL PROTEIN 8.1 g/dL (6.7-8.2)
[2020-02-15 22:59] VITALS: BP 128/93
== END 2020-02-15 23:13 | disposition home or self-care (01) ==
LOC: ED 20:55
DX: M79.81 Nontraumatic hematoma of soft tissue (principal); G35 Multiple sclerosis
CPT/HCPCS: 36415; 80053; 83690; 85025; 85610; 99283; A9270

== ENCOUNTER 2020-04-05 18:51 | Emergency (ER) | payer MEDICAID ==
[2020-04-05] MEDS ORDERED: LIDOCAINE TOPICAL 4% 50 ML BOTTLE TOP ONE (19:28)
--- NOTE | 2020-04-05 19:30 | ED Physician Documentation ---
PD HPI HEADACHE - Stated complaint Stated Complaint: HEAD PAIN, UNABLE TO STAY AWAKE - Chief complaint Chief Complaint: General - History obtained from History obtained from: Patient (34-year-old woman with history of alcoholism presents with ongoing headache that is been going on for months. She had an MRI which was suggestive of multiple sclerosis per her and is seeing a neurologist at [facility] in [place]. She is pending more MRI studies and a diagnostic lumbar puncture for multiple sclerosis but presents today requesting help with her chronic headache. The headache started in the back several months ago but now is a frontal headache. It is most of the time but she does have pain-free days. She has some visual symptoms with it but no light sensitivity. The whole of the work-up and treatment has been complicated by ongoing alcohol use but she has diminished her drinking lately but admits to still drinking on occasion and had a beer prior to arrival.) Review of Systems Constitutional: denies: Fever, Chills Nose: denies: Rhinorrhea / runny nose Throat: denies: Sore throat Cardiac: denies: Chest pain / pressure, Palpitations PD PAST MEDICAL HISTORY - Past Medical History Cardiovascular: None Respiratory: None Neuro: None, Multiple sclerosis Endocrine/Autoimmune: None GI: None TRANSIT SPECIALIST: None : None HEENT: None Psych: Anxiety, Post traumatic stress disorder Musculoskeletal: None Derm: Other - Past Surgical History Past Surgical History: No Cardiovascular: Lobectomy - Present Medications Home Medications: Ambulatory Orders Medication Instructions Recorded Confirmed Propranolol [Inderal] 10 mg PO DAILY 07/12/15 07/12/15 cloNIDine [Catapres] 0.1 mg PO DAILY 07/12/15 07/12/15 Clindamycin HCl [Clindamycin 300MG 300 mg PO Q6H #40 capsule 04/27/19 CAP] Hydrocodone/Acetaminophen 1 - 2 each PO Q6H PRN #10 tablet 04/27/19 [Hydrocodon-Acetaminophen 5-325] Butalb/Acetaminophen/Caffeine 1 each PO TID PRN #12 capsule 08/22/19 [Fioricet 50-300-40 mg Capsule] Clindamycin HCl [Clindamycin 300MG 300 mg PO TID #21 capsule 08/22/19 CAP] Hydrocodone/Acetaminophen [[place] 1 each PO Q6H PRN #12 tablet 08/22/19 5-325 Tablet] dexAMETHasone [Decadron] 4 mg PO DAILY #7 tablet 08/22/19 Meloxicam [Mobic] 7.5 mg PO BID PRN #10 tablet 02/01/20 Omeprazole 20 mg PO DAILY #14 capsule. 02/01/20 traMADol [Ultram] 50 mg PO Q6H PRN #14 tablet 02/15/20 Butalb/Acetaminophen/Caffeine 1 each PO Q4H PRN #10 capsule 04/05/20 [[id number] 50-300-40] - Allergies Allergies/Adverse Reactions: Allergies Allergy/AdvReac Type Severity Reaction Status Date / Time sumatriptan [From Imitrex] Allergy Severe Respiratory Verified 04/05/20 19:05 naltrexone Allergy Unknown Verified 04/05/20 19:05 - Social History Does the pt smoke?: No Smoking Status: Never smoker Does the pt drink ETOH?: Yes Does the pt have substance abuse?: No - Immunizations Immunizations are current?: Yes - POLST Patient has POLST: No PD ED PE NORMAL - Vitals Vital signs reviewed: Yes - General General: Alert and oriented X 3, No acute distress - HEENT HEENT: PERRL, EOMI, Other (Mild lateral nystagmus in either direction.) - Neck Neck: Supple, no meningeal sign, No bony TTP - Extremities Extremities: Other (She has sand on the bottom of her feet because she was just visiting the beach.) - Neuro Neuro: Alert and oriented X 3, outside solar sales consultant 2-12 intact, No motor deficit, No sensory deficit, Normal speech Eye Opening: Spontaneous Motor: Obeys Commands Verbal: Oriented GCS Score: 15 - Psych Psych: Normal mood, Normal affect Results - Vitals Vitals: Vital Signs - 24 hr 04/05/20 19:05 Temperature 36.6 C Heart Rate 100 Respiratory 20 Rate Blood Pressure 134/89 H O2 Saturation 99 Oxygen O2 Source Room air Procedures - General procedure General procedure: Little less than 1 mL of atomized lidocaine up both nares for pain control using a atomizer PD MEDICAL DECISION MAKING - ED course ED course: 34-year-old woman with chronic headache syndrome. She actually had fairly good relief with atomized lidocaine up both nares here. Some limitation in potential prescriptions because of ongoing alcohol use which she does seem to be working with. Departure - Departure Disposition: 01 Home, Self Care Clinical Impression: Chronic headache Qualifiers: Headache type: unspecified Intractability: intractable Qualified Code(s): R51 - Headache Condition: Good Record reviewed to determine appropriate education?: Yes Instructions: ED Chronic Pain Management Prescriptions: Butalb/Acetaminophen/Caffeine [[id number] 50-300-40] 1 each PO Q4H PRN #10 capsule PRN Reason: Headache Comments: As discussed, it is definitely preferential for you to get most of your medications through your neurologist or primary care physician. Continue your excellent work at decreasing alcohol use. Return anytime for new or worsening symptoms.
[2020-04-05 20:04] VITALS: BP 130/90
== END 2020-04-05 20:03 | disposition home or self-care (01) ==
LOC: ED 18:51
DX: G44.89 Other headache syndrome (principal); F10.20 Alcohol dependence, uncomplicated
CPT/HCPCS: 99282; 99284

== ENCOUNTER 2020-04-18 22:09 | Emergency (ER) | payer MEDICAID ==
--- NOTE | 2020-04-18 22:12 | ED Physician Documentation ---
History of Present Illness - Stated complaint Stated Complaint: MHE - History obtained from History obtained from: Patient (the patient is a 34 y/o f with multiple sclerosis who states her counselor sent her to the ed because she has been feeling depressed. she denies any hi/si or aud/vis hallucinations. denies any illicit drug use or alcohol use.) Review of Systems Constitutional: reports: Reviewed and negative Eyes: reports: Reviewed and negative Ears: reports: Reviewed and negative Nose: reports: Reviewed and negative Throat: reports: Reviewed and negative Cardiac: reports: Reviewed and negative Respiratory: reports: Reviewed and negative GI: reports: Reviewed and negative : reports: Reviewed and negative Skin: reports: Reviewed and negative Musculoskeletal: reports: Reviewed and negative Neurologic: reports: Reviewed and negative Psychiatric: reports: Depressed Endocrine: reports: Reviewed and negative Immunocompromised: reports: Reviewed and negative PD PAST MEDICAL HISTORY - Past Medical History Cardiovascular: None Respiratory: None Neuro: None, Multiple sclerosis Endocrine/Autoimmune: None GI: None 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 : None HEENT: None Psych: Anxiety, Post traumatic stress disorder Musculoskeletal: None Derm: Other - Past Surgical History Past Surgical History: No Cardiovascular: Lobectomy - Present Medications Home Medications: Ambulatory Orders Medication Instructions Recorded Confirmed Propranolol [Inderal] 10 mg PO DAILY 07/12/15 07/12/15 cloNIDine [Catapres] 0.1 mg PO DAILY 07/12/15 07/12/15 Clindamycin HCl [Clindamycin 300MG 300 mg PO Q6H #40 capsule 04/27/19 CAP] Hydrocodone/Acetaminophen 1 - 2 each PO Q6H PRN #10 tablet 04/27/19 [Hydrocodon-Acetaminophen 5-325] Butalb/Acetaminophen/Caffeine 1 each PO TID PRN #12 capsule 08/22/19 [Fioricet 50-300-40 mg Capsule] Clindamycin HCl [Clindamycin 300MG 300 mg PO TID #21 capsule 08/22/19 CAP] Hydrocodone/Acetaminophen [[place] 1 each PO Q6H PRN #12 tablet 08/22/19 5-325 Tablet] dexAMETHasone [Decadron] 4 mg PO DAILY #7 tablet 08/22/19 Meloxicam [Mobic] 7.5 mg PO BID PRN #10 tablet 02/01/20 Omeprazole 20 mg PO DAILY #14 capsule. 02/01/20 traMADol [Ultram] 50 mg PO Q6H PRN #14 tablet 02/15/20 Butalb/Acetaminophen/Caffeine 1 each PO Q4H PRN #10 capsule 04/05/20 [[id number]-Rpmc 50-300-40] - Allergies Allergies/Adverse Reactions: Allergies Allergy/AdvReac Type Severity Reaction Status Date / Time sumatriptan [From Imitrex] Allergy Severe Respiratory Verified 04/18/20 22:23 naltrexone Allergy Unknown Verified 04/18/20 22:23 - Social History Does the pt smoke?: No Smoking Status: Never smoker Does the pt drink ETOH?: Yes Does the pt have substance abuse?: No - Immunizations Immunizations are current?: Yes - POLST Patient has POLST: No PD ED PE NORMAL - Vitals Vital signs reviewed: Yes - General General: Alert and oriented X 3, No acute distress - HEENT HEENT: PERRL - Neck Neck: Supple, no meningeal sign - Cardiac Cardiac: RRR, No murmur - Respiratory Respiratory: Clear bilaterally - Abdomen Abdomen: Normal bowel sounds, Soft, Non tender, Non distended - Derm Derm: Warm and dry - Extremities Extremities: No deformity - Neuro Neuro: Alert and oriented X 3 - Psych Psych: Normal mood, Normal affect, Other (no hi/si. good affect. no plan of hurting herself. good eye contact. no estefany currently.) Results - Vitals Vitals: Vital Signs - 24 hr 04/18/20 22:17 Temperature 36.1 C L Heart Rate 99 Respiratory 18 Rate Blood Pressure 127/84 H O2 Saturation 97 Oxygen O2 Source Room air - Labs Labs: Laboratory Tests 04/18/20 04/18/20 04/18/20 22:58 22:58 22:58 WBC 3.4 L RBC 3.23 L Hgb 12.1 Hct 33.7 L MCV 104.3 H MCH 37.5 H MCHC 35.9 RDW 11.0 L Plt Count 236 MPV 8.5 Neut # (Auto) 1.2 L Lymph # (Auto) 1.7 [place] # (Auto) 0.3 Eos # (Auto) 0.1 Baso # (Auto) 0.1 Absolute Nucleated RBC 0.00 Nucleated RBC % 0.0 Sodium 132 L Potassium 3.8 Chloride 93 L Carbon Dioxide 26 Anion Gap 13.0 BUN 5 L Creatinine 0.4 Estimated GFR (MDRD) 182 Glucose 91 Calcium 9.0 Total Bilirubin 0.7 AST 182 H ALT 85 H Alkaline Phosphatase 80 Total Protein 7.8 Albumin 4.6 Globulin 3.2 Albumin/Globulin Ratio 1.4 Lipase 40 TSH 1.47 Salicylates < 6.0 Acetaminophen < 10 L Ethyl Alcohol 344.8 PD MEDICAL DECISION MAKING - ED course Complexity details: reviewed results, re-evaluated patient (patient eloped), considered differential (patient with no plan for hi/si. i did offer to have telepsych talk to her. patient was to be medically cleared however she eloped.), d/w patient Departure - Departure Disposition: ED [place] Clinical Impression: Multiple sclerosis Discharge Date/Time: 04/18/20 23:23
[2020-04-18 22:23] VITALS: BP 127/84
[2020-04-18 23:08] LABS: BASOPHILS # (AUTO) 0.1 10^3/uL (0.0-0.1); BASOPHILS % (AUTO) 1.5 %; EOSINOPHILS # (AUTO) 0.1 10^3/uL (0.0-0.7); EOSINOPHILS % (AUTO) 2.6 %; HGB - HEMOGLOBIN 12.1 g/dL (12.0-16.0); LYMPHOCYTES # (AUTO) 1.7 10^3/uL (1.5-3.5); LYMPHOCYTES % (AUTO) 51.2 %; MEAN CORPUSCULAR HEMOGLOBIN 37.5 pg (27.0-31.0); MEAN CORPUSCULAR HGB CONC 35.9 g/dL (32.0-36.0); MEAN CORPUSCULAR VOLUME 104.3 fL (81.0-99.0); MEAN PLATELET VOLUME 8.5 fL (7.9-10.8); MONOCYTES # (AUTO) 0.3 10^3/uL (0.0-1.0); MONOCYTES % (AUTO) 7.9 %; NEUTROPHILS # (AUTO) 1.2 10^3/uL (1.5-6.6); NEUTROPHILS % (AUTO) 36.5 %; PLT - PLATELET COUNT 236 10^3/uL (130-450); RED BLOOD COUNT 3.23 10^6/uL (4.20-5.40); WHITE BLOOD COUNT 3.4 x10^3/uL (4.8-10.8)
[2020-04-18 23:26] LABS: ACETAMINOPHEN < 10 ug/mL (10-30); ALBUMIN 4.6 g/dL (3.2-5.5); ALBUMIN/GLOBULIN RATIO 1.4 (1.0-2.2); ALKALINE PHOSPHATASE 80 IU/L (42-121); ALT ALANINE AMINOTRANSFERASE 85 IU/L (10-60); AST ASPARTATE AMINOTRANSFERASE 182 IU/L (10-42); BILIRUBIN,TOTAL 0.7 mg/dL (0.2-1.0); BUN - BLOOD UREA NITROGEN 5 mg/dL (6-20); CARBON DIOXIDE - CO2 26 mmol/L (21-32); CHLORIDE 93 mmol/L (101-111); CREATININE 0.4 mg/dL (0.4-1.0); GLUCOSE 91 mg/dL (70-100); LIPASE 40 U/L (22-51); SALICYLATE < 6.0 mg/dL; SODIUM 132 mmol/L (135-145); TOTAL PROTEIN 7.8 g/dL (6.7-8.2)
== END 2020-04-18 23:23 | disposition left against medical advice (07) ==
LOC: ED 22:09
DX: F32.9 Major depressive disorder, single episode, unspecified (principal); G35 Multiple sclerosis; Z53.20 Procedure and treatment not carried out because of patient's decision for unspecified reasons
CPT/HCPCS: 36415; 80053; 80307; 80320; 80329; 83690; 84443; 85025; 99283

== ENCOUNTER 2020-04-29 11:32 | Outpatient (CLI) | payer MEDICAID | END 2020-04-29 11:33 | disposition critical access hospital (66) | LOC: EMS 11:32 | PROVIDERS: ATTEND Surgery | DX: Z72.89 Other problems related to lifestyle (principal); R10.9 Unspecified abdominal pain | CPT/HCPCS: A0425; A0429 ==